=== PATIENT | female | born 1995 | race African-American/Black ===

== ENCOUNTER 2017-08-12 12:44 | Emergency (ER) | payer BC ==
[~2017-08-12] VITALS: Ht 157.5 cm; Wt 73.9 kg
[2017-08-12 13:20] LABS: ABSOLUTE NEUTROPHILS 5.4 thou/uL (1.4-8.2); BASOPHILS 0.7 % (0.0-2.0); EOSINOPHILS 1.8 % (0.0-3.0); HEMATOCRIT 39.2 % (37.0-47.0); HEMOGLOBIN 12.9 gm/dL (12.0-15.0); LYMPHOCYTES 29.9 % (24.0-44.0); MCH 28.4 pg (26.0-34.0); MCV 85.9 fL (80.0-100.0); MONOCYTES 10.3 % (1.0-8.0); PLATELET COUNT 262 thou/uL (150-400); POLYS 57.3 % (36.0-66.0); RBC 4.56 mil/uL (4.20-5.00); RDW 12.7 % (10.5-14.5); WBC 9.5 thou/uL (4.0-11.0)
[2017-08-12 13:31] LABS: CALCIUM 9.2 mg/dL (8.5-10.1); CREATININE 0.8 mg/dL (0.6-1.0); POTASSIUM 3.6 mmol/L (3.5-5.1)
[2017-08-12] MEDS ORDERED: PHENERGAN 25 MG25 M1 PO (13:45)
[2017-08-12 14:56] VITALS: BP 128/76
== END 2017-08-12 14:57 | disposition home or self-care (01) ==
LOC: ER 12:44
PROVIDERS: Emergency Medicine
DX: G43.909 Migraine, unspecified, not intractable, without status migrainosus (principal); R20.0 Anesthesia of skin; Z88.4 Allergy status to anesthetic agent

== ENCOUNTER 2019-04-05 21:18 | Emergency (ER) | payer BC ==
[~2019-04-05] VITALS: Ht 157.5 cm; Wt 78.0 kg
[~2019-04-05 21:18] MED LIST: PHENERGAN 25 MG25 M1 PO
[2019-04-05 22:50] VITALS: BP 94/61
== END 2019-04-05 22:50 | disposition home or self-care (01) ==
LOC: ER 21:18
DX: R20.2 Paresthesia of skin (principal); R51 Headache; F41.8 Other specified anxiety disorders; Z88.8 Allergy status to other drugs, medicaments and biological substances